=== PATIENT | female | born 1985 | race Caucasian/White ===

== ENCOUNTER 2020-02-01 19:08 | Emergency (ER) | payer OTHER, SELFPAY ==
[2020-02-01 19:11] VITALS: BP 145/102; PULSE 95; RESP 16; TEMP 36.7; O2SAT 97; BMI 19.4
--- NOTE | 2020-02-01 19:14 | XRR_ITS ---
PROCEDURE INFORMATION: Exam: XR Left Wrist Exam date and time: 02/01/2020 7:34 PM Age: 34 years old Clinical indication: Pain; Swelling; Wrist; Left; Additional info: Injury TECHNIQUE: Imaging protocol: XR Left wrist. Views: 3 or more views. COMPARISON: No relevant prior studies available. FINDINGS: Bones/joints: Normal. Soft tissues: Normal. XR/XR wrist LT min 3V* [id number] IMPRESSION: No acute findings.
--- NOTE | 2020-02-01 19:23 | ED_ITS ---
HPI - Extremity Problem General: Chief complaint: Extremity Injury, Upper Stated complaint: WRIST INJURY Time Seen by Provider: 02/01/20 19:12 Source: patient Mode of arrival: ambulatory Limitations: no limitations History of Present Illness: HPI Narrative: 34-year-old female states she has been having left wrist pain over the last 2 weeks. States she is had some swelling and has pain with any movement or use of the wrist. She denies any known injury. She denies any fevers. Associated symptoms: Deny chest pain, fever(s) or rash Review of Systems Const: Denies: fever(s), chills, body aches or change in appetite Eyes: Denies: blurry vision or eye discomfort ENMT: Denies: throat pain or dental pain Card: Denies: chest pain Resp: Denies: dyspnea GI: Denies: abdominal pain, nausea, vomiting or diarrhea : Denies: dysuria Musc: Reports: extremity pain Skin/Breast: Denies: rash Neuro: Denies: headache(s) Psych: Denies: depression Jay/Lymph: Denies: easy bruising All/Imm: Denies: urticaria Physical Exam Const: COMMON NORMALS: no acute distress, average body habitus and patient oriented x3 HENMT: COMMON NORMALS: normocephalic and atraumatic HEAD & SCALP: normocephalic and atraumatic Eye: COMMON NORMALS: conjunctivae normal CONJUNCTIVA: Yes conjunctivae normal Neck/C-Spine: COMMON NORMALS: supple Resp: COMMON NORMALS: normal respiratory effort Cardio: COMMON NORMALS: regular rate RATE: regular rate Extremity: NARRATIVE EXTREMITY EXAM: swelling alongwith tenderness to left wrist with no warmth or redness Neuro: COMMON NORMALS: patient oriented x3 Psych: COMMON NORMALS: mental status grossly normal, Normal thought process present and cooperative THOUGHT PROCESS: Normal thought process present Skin: COMMON NORMALS: no rashes or lesions noted GENERAL SKIN EXAM: no rashes or lesions noted Course Vital Signs: Vital signs: Vital Signs Temperature 98.1 F 02/01/20 19:11 Pulse Rate 95 02/01/20 19:11 Respiratory Rate 16 02/01/20 19:11 Blood Pressure 145/102 02/01/20 19:11 Pulse Oximetry 97 02/01/20 19:11 MDM - Extremity (Nontraumatic) MDM Narrative: Medical decision making narrative: Patient presents here with a wrist sprain. Patient's x-ray here shows no fracture. She is well-appearing here and is stable for discharge. She is to ice along with rest and will place an Dragan wrap. She is to follow-up with PCP in 3 to 5 days return if worsening. She has no signs of septic joint no warmth to touch. Imaging Data^: X-ray left wrist: Attestation: I personally reviewed and interpreted this imaging study as follows: My impression: No acute abnormality Discharge Plan Discharge Patient Disposition: Home Clinical Impression: Sprain and strain of wrist Condition: Stable Discharge Orders: Discharge Order (Routine); Ordered 02/01/20 Ordered By: Gabriel Mast Referrals: García Genao MD [Family Provider] - Discharge Diet: Advance as tolerated Discharge Activity: Resume usual activity Patient Instructions: Wrist Sprain (ED) Coding Level of Care Code ED Marriage And Family Therapist for Walig Fwd Exam Comprehensive
[2020-02-01] MEDS: naproxen 500 mg Tablet PO (19:34)
[2020-02-01 20:06] VITALS: BP 143/103; PULSE 89; RESP 16; TEMP 36.7; O2SAT 98
== END 2020-02-01 20:06 | disposition home or self-care (01) ==
LOC: ER 20:27
PROVIDERS: Emergency Provider Emergency Medicine; PCP Family Medicine
DX: S63.502A Unspecified sprain of left wrist, initial encounter (principal); S66.912A Strain of unspecified muscle, fascia and tendon at wrist and hand level, left hand, initial encounter; X58.XXXA Exposure to other specified factors, initial encounter
CPT/HCPCS: 12345; 73110; 99281; 99283

== ENCOUNTER 2021-02-26 20:09 | Emergency (ER) | payer OTHER, SELFPAY ==
[2021-02-26 20:23] VITALS: BP 152/92; PULSE 82; RESP 16; TEMP 36.7; O2SAT 96
[2021-02-26 22:19] LABS: HCG Qualitative Urine. Negative (Negative)
[2021-02-26 22:35] LABS: Add Urine Culture? Yes; Add Urine Microscopic? YES; Bacteria Urine 1+ /hpf; Bilirubin Urine 2+ (Negative); Blood Urine 2+ (Negative); Glucose Urine UA Norm (Normal); Ketones Urine Negative (Negative); Leukocyte Esterase Urine 2+ (Negative); Mucus Urine TRACE /hpf; Nitrate Urine Positive (Negative); Protein Urine 3+ (Negative); RBC Urine 0-4 /hpf (0-2); Squamous Epithelial Cell Urine 0-4 /hpf (0-5); Urine Appearance Clear (CLEAR); Urine Color Orange (Yellow); Urobilinogen Urine 4+ mg/dL (Negative); WBC Urine 40-55 /hpf (0-5); pH Urine 6.5 (5-7)
--- NOTE | 2021-02-26 23:30 | ED_ITS ---
HPI - Abdominal Pain General: Chief Complaint: Abdominal Pain Stated Complaint: Bladder Infection Time Seen by Provider: 02/26/21 22:10 Source: patient Mode of arrival: ambulatory Limitations: no limitations History of Present Illness: HPI narrative: 35-year-old female states she has been having lower abdominal pain along with dysuria last 3 days. She states that her pain is worsens greatly as she is emptying her bladder and it feels like knives. States her urinary tract infections in the past and this is the same. Denies any vaginal discharge. She has had an appendectomy. Denies any vomiting or diarrhea. Denies any flank pain. Associated Symptoms: Reports dysuria; Denies chills and fever(s) Review of Systems Const: Denies: fever(s), chills, body aches or change in appetite Eyes: Denies: blurry vision or eye discomfort ENMT: Denies: throat pain or dental pain Card: Denies: chest pain Resp: Denies: dyspnea GI: Reports: abdominal pain : Reports: dysuria Musc: Denies: neck pain or back pain Skin/Breast: Denies: rash Neuro: Denies: headache(s) Psych: Denies: depression Jay/Lymph: Denies: easy bruising All/Imm: Denies: urticaria Physical Exam Const: COMMON NORMALS: no acute distress, patient oriented x3 and healthy appearing HENMT: COMMON NORMALS: normocephalic and atraumatic HEAD & SCALP: normocephalic and atraumatic Eye: COMMON NORMALS: Equal, round and reactive pupils present and EOMs intact bilaterally PUPIL: Yes Equal, round and reactive pupils present Neck/C-Spine: COMMON NORMALS: full ROM and supple Chest: COMMONS NORMALS: normal inspection of the chest and normal palpation of entire chest wall Resp: COMMON NORMALS: normal respiratory effort, No retractions, No use of accessory muscles and clear to auscultation bilaterally AUSCULTATION: clear to auscultation bilaterally Cardio: COMMON NORMALS: regular rate, regular rhythm and No murmurs present (Cardio) RATE: regular rate RHYTHM: regular rhythm GI: COMMON NORMALS: Normal to inspection, nondistended, normoactive bowel sounds present, Soft to palpation, non-tender and no masses PALPATION: Yes Soft to palpation Extremity: COMMON NORMALS: normal to inspection and full ROM Neuro: COMMON NORMALS: patient oriented x3, moves all extremities and no focal motor deficits Psych: COMMON NORMALS: mental status grossly normal, Normal thought process present and cooperative THOUGHT PROCESS: Normal thought process present Skin: COMMON NORMALS: no rashes or lesions noted and no wounds GENERAL SKIN EXAM: no rashes or lesions noted Course Vital Signs: Vital signs: Vital Signs Temperature 98.0 F 02/26/21 20:23 Pulse Rate 82 02/26/21 20:23 Respiratory Rate 16 02/26/21 20:23 Blood Pressure 152/92 02/26/21 20:23 Pulse Oximetry 96 02/26/21 20:23 MDM - Abdominal Pain MDM Narrative: Medical decision making narrative: Patient presents here with acute cystitis abdominal exam is benign with no signs of acute surgical abdomen. Patient given a dose of Rocephin here and will prescribe Keflex for home. She has no vaginal discharge or any signs of PID. She is stable for discharge she is to follow-up with PCP and return if worsening. Lab Data: Labs: Lab Results 02/26/21 02/26/21 21:50 21:50 HCG, Qual Negative (Negative) Urine Color [place] (Yellow) Urine Appearance Clear (CLEAR) Urine pH 6.5 (5-7) Ur Specific Gravit y 1.010 (1.005-1.030) Urine Protein 3+ H (Negative) Urine Glucose (UA) Norm (Normal) Urine Ketones Negative (Negative) Urine Blood 2+ H (Negative) Urine Nitrate Positive H (Negative) Urine Bilirubin 2+ H (Negative) Urine Urobilinogen 4+ mg/dL H mg/dL (Negative) Ur Leukocyte Dara ase 2+ H (Negative) Urine RBC 0-4 /hpf H /hpf (0-2) Urine WBC 40-55 /hpf H /hpf (0-5) Ur Squamous Epith Cells 0-4 /hpf H /hpf (0-5) Amorphous Sediment Not Reportable Urine Bacteria 1+ /hpf H /hpf (NONE) Urine Mucus Trace /hpf /hpf Discharge Plan Discharge Patient Disposition: Home Clinical Impression: Acute cystitis Qualifiers: Hematuria presence: without hematuria Qualified Code(s): N30.00 - Acute cystitis without hematuria Condition: Stable Prescriptions: New cephalexin 500 mg capsule 500 mg PO TID 7 Days Qty: 21 RF: 0 Naprosyn 500 mg tablet 500 mg PO BID PRN (Reason: pain) Qty: 20 RF: 0 Discharge Orders: Discharge ED (Routine); Ordered 02/26/21 Ordered By: Gabriel Mast Discharge Diet: Advance as tolerated Discharge Activity: Resume usual activity Patient Instructions: Urinary Tract Infection in Women (DC) Coding Level of Care Code ED Electric Power Line Examiner for Matilde Cerrato
[2021-02-26 23:36] VITALS: BP 169/121; PULSE 88; RESP 18; O2SAT 98
[2021-02-26] MEDS: HYDROcodone-acetaminophen 7.5-325 mg Tablet 1 TAB PO (23:37)
[2021-02-26] MEDS: cefTRIAXone 1,000 MG in lidocaine 1% 2.1 ML 2.1 MG IM (23:38)
[2021-02-26] MEDS: fluconazole 100 mg Tablet 150 MG PO (23:41)
[2021-02-26 23:43] VITALS: BP 155/104; PULSE 99; RESP 18; O2SAT 97
== END 2021-02-26 23:47 | disposition home or self-care (01) ==
PROVIDERS: Emergency Provider Emergency Medicine
DX: N30.00 Acute cystitis without hematuria (principal)
CPT/HCPCS: 81001; 81025; 87077; 87086; 87186; 96372; 99283; J0696

== ENCOUNTER → 2021-04-03 09:09 | Outpatient (BNVA) | payer OTHER, SELFPAY | PROVIDERS: PCP Nurse Practitioner Family; Visit Provider Nurse Practitioner Family | DX: R05.9 Cough, unspecified (principal); J02.9 Acute pharyngitis, unspecified | CPT/HCPCS: 87070; 87400; 87880 ==

== ENCOUNTER → 2021-07-05 15:44 | Outpatient (BNVA) | payer OTHER, SELFPAY | PROVIDERS: PCP Nurse Practitioner Family; Visit Provider Nurse Practitioner | DX: R73.9 Hyperglycemia, unspecified (principal); N92.6 Irregular menstruation, unspecified | CPT/HCPCS: 80053; 80061; 81000; 83036; 84443; 85025 ==

== ENCOUNTER 2022-01-16 09:59 | Emergency (ER) | payer OTHER, SELFPAY ==
[2022-01-16] VITALS (9 sets, daily range): BP systolic 112–133; BP diastolic 76–90; PULSE 75–107; RESP 12–33; TEMP 36.6; O2SAT 100; BMI 22.4
--- NOTE | 2022-01-16 10:21 | ED_ITS ---
HPI - Syncope General: Chief Complaint: Syncope Stated Complaint: Extreme nausea, passing out spells Time Seen by Provider: 01/16/22 10:00 Source: patient Mode of arrival: ambulatory History of Present Illness: 36-year-old female presents to the emergency room with a complaint of syncopal episode. On arrival in the room her is on speaker phone on a conference call. Will return at a later time once he has completed his meeting. Return to the patient's room she is awake alert and oriented states she had a couple episodes where she nearly passed out she went into work after being home for several days because of a persistent nausea and vomiting. She got lightheaded and dizzy she went to lay down when she went to sit back up she felt like she nearly passed out and then had similar episodes again ultimately her h usband was called and brought her in here. She denies any fever sweats chills with the GI symptoms she had previously there is no hematochezia melena hematemesis or coffee-ground emesis. MD complaint: felt faint and almost passed out Onset (ago): hour(s) Prodromal symptoms: lightheaded Context: recent illness and other (Change in posture) Injuries sustained associated with event: none Associated symptoms: Reports lightheadedness and nausea; Deny abdominal pain, chest pain, fever(s), headache(s), short of breath, vertigo or weakness Treatments prior to arrival: none Review of Systems Const: Denies: fever(s), chills, fatigue or malaise ENMT: Denies: throat pain, ear or mastoid pain, nasal discharge or nasal congestion Card: Reports: lightheadedness; Denies: chest pain Resp: Denies: dyspnea, productive cough or non-productive cough GI: Reports: nausea; Denies: abdominal pain : Denies: flank pain, difficulty voiding, dysuria, urinary frequency or urinary urgency Musc: Denies: neck pain or back pain Skin/Breast: Denies: rash or pruritus Neuro: Denies: headache(s) or vertigo PFSH ED PFSH: Medical History Migraine headache Surgical History History of appendectomy 2010 History of section 2008 History of hernia repair right 1996 Family History Grandfather Cancer Diabetes Hypertension Stroke Grandmother Cancer Diabetes Hypertension Mother Diabetes Hypertension Father Hypertension Sister Hypertension Brother Hypertension Father Stroke Other Dementia Denies family history of Anesthesia complication Bleeding disorder Social History Smoking and tobacco status: never smoked Second hand smoke exposure: No Smoking risk assessment/counseling performed?: No Alcohol intake: never Desire information about alcohol rehabilitation?: No Counseling given: No Desire information about substance/drug rehabilitation?: No Counseling given: No Adopted: No Caregiver/support person: Yes Lives independently: Yes Household members: spouse and children Housing: House Marital status: Number of children: 3 service: No Current occupational status: employed Current occupation: [employer] Pets and animals: Yes Pets & animals: farm animals Current gender identity: Female Female Reproductive History: Date of last menstrual period: 06/07/21 Physical Exam Const: GENERAL APPEARANCE: cooperative and comfortable ORIENTATION/CONSCIOUSNESS: Yes awake, Yes oriented to person, Yes oriented to place and Yes oriented to time HENMT: COMMON NORMALS: normocephalic, atraumatic and hearing grossly normal bilaterally HEAD & SCALP: normocephalic and atraumatic Resp: COMMON NORMALS: normal respiratory effort, No retractions, No use of accessory muscles and clear to auscultation bilaterally AUSCULTATION: clear to auscultation bilaterally Cardio: COMMON NORMALS: regular rate, regular rhythm and No murmurs present (Cardio) RATE: regular rate RHYTHM: regular rhythm GI: COMMON NORMALS: Soft to palpation and No hepatosplenomegaly present AUSCULTATION: Yes normoactive bowel sounds PALPATION: Yes Soft to palpation, No Tenderness to palpation present (GI), No Guarding due to palpation present (GI) and Yes No hepatosplenomegaly present Extremity: COMMON NORMALS: normal to inspection, capillary refill normal, no clubbing, cyanosis or edema, no calf tenderness and no pedal edema Neuro: SENSORIUM/ORIENTATION: Yes oriented to person, Yes oriented to place and Yes oriented to time Skin: COMMON NORMALS: no rashes or lesions noted GENERAL SKIN EXAM: no rashes or lesions noted Course Vital Signs: Vital signs: Vital Signs Temperature 97.8 F 01/16/22 10:06 Pulse Rate 94 01/16/22 13:18 Respiratory Rate 20 H 01/16/22 13:18 Blood Pressure 119/86 01/16/22 13:18 Pulse Oximetry 100 01/16/22 13:18 Oxygen Delivery Me thod 01/16/22 10:06 MDM - Syncope Medical Decision Making Ketones in urine otherwise labs unremarkable. Patient responded well to fluids feeling much better discharged home antiemetics as needed clear liquid diet advance as tolerated recommend she take the next 1-2 more days or cough. Medical Records I reviewed the patient's medical records. Lab Data I reviewed the patient's lab results. : 01/16/22 10:26 01/16/22 10:26 Laboratory Results WBC 8.8 10^3/uL (4.0-10.0) 01/16/22 10:26 RBC 4.59 10^6/uL (4.1-5.3) 01/16/22 10:26 Hgb 14.1 g/dL (11.5-15.3) 01/16/22 10:26 Hct 42.0 % (37.0-47.0) 01/16/22 10:26 MCV 91.5 fl (81-99) 01/16/22 10:26 MCH 30.7 pg (28.0-34.0) 01/16/22 10:26 MCHC 33.6 g/dL (30.0-36.0) 01/16/22 10:26 RDW 12.4 % (12.1-15.1) 01/16/22 10:26 Plt Count 284 10^3/cmm (130-400) 01/16/22 10:26 MPV 9.5 fL (7.4-10.4) 01/16/22 10:26 Neut % (Auto) 76.9 % 01/16/22 10:26 Lymph % (Auto) 14.9 % 01/16/22 10:26 Maries % (Auto) 7.1 % 01/16/22 10:26 Eos % (Auto) 0.5 % 01/16/22 10:26 Baso % (Auto) 0.3 % 01/16/22 10:26 Neut # (Auto) 6.74 10^3/uL (1.8-7.7) 01/16/22 10:26 Lymph # (Auto) 1.3 10^3/uL (0.8-4.8) 01/16/22 10:26 Maries # (Auto) 0.6 10^3/uL (0.2-0.9) 01/16/22 10:26 Eos # (Auto) 0.0 10^3/uL (0.0-0.8) 01/16/22 10:26 Baso # (Auto) 0.0 10^3/uL (0.0-0.1) 01/16/22 10:26 Nucleated RBC % (auto) 0 % 01/16/22 10:26 Nucleated RBCs # 0.0 /100WBC 01/16/22 10:26 Sodium 138 mmol/L (136-145) 01/16/22 10:26 Potassium 3.9 mmol/L (3.5-5.1) 01/16/22 10:26 Chloride 102 mmol/L (98-107) 01/16/22 10:26 Carbon Dioxide 25 mmol/L (22-29) 01/16/22 10:26 Anion Gap 14.9 (5-19) 01/16/22 10:26 BUN 11 mg/dL (6-20) 01/16/22 10:26 Creatinine 0.5 mg/dL (0.5-0.9) 01/16/22 10:26 GFR Calculation 139.6 mL/min (90-130) H 01/16/22 10:26 Glucose 83 mg/dL (65-115) 01/16/22 10:26 Calculated Osmolality 285 mOsm/kg (285-295) 01/16/22 10:26 Calcium 9.6 mg/dL (8.5-10.5) 01/16/22 10:26 Total Bilirubin 0.3 mg/dL (0.15-1.2) 01/16/22 10:26 AST 16 U/L (0-32) 01/16/22 10:26 ALT 14 U/L (0-33) 01/16/22 10:26 Alkaline Phosphatase 53 U/L (35-105) 01/16/22 10:26 Total Protein 7.5 g/dL (6.6-8.7) 01/16/22 10:26 Albumin 4.5 g/dL (3.5-5.2) 01/16/22 10:26 Globulin 3.0 g/dL (1.3-4.6) 01/16/22 10:26 HCG, Qual Negative (Negative) 01/16/22 10:35 Urine Color Yellow (Yellow) 01/16/22 11:22 Urine Appearance Clear (CLEAR) 01/16/22 11:22 Urine pH 6 (5-7) 01/16/22 11:22 Ur Specific [place] 1.010 (1.005-1.030) 01/16/22 11:22 Urine Protein Neg (Negative) 01/16/22 11:22 Urine Glucose (UA) Norm (Normal) 01/16/22 11:22 Urine Ketones 2+ (Negative) H 01/16/22 11:22 Urine Blood Neg (Negative) 01/16/22 11:22 Urine Nitrate Negative (Negative) 01/16/22 11:22 Urine Bilirubin Neg (Negative) 01/16/22 11:22 Urine Urobilinogen Norm mg/dL (Negative) 01/16/22 11:22 Ur Leukocyte Esterase Negative (Negative) 01/16/22 11:22 Discharge Plan Discharge Patient Disposition: Home Clinical Impression: Syncope due to orthostatic hypotension Condition: Stable Prescriptions: New ondansetron HCl 4 mg tablet 4 mg PO Q6H PRN (Reason: nausea and vomiting) Qty: 20 0RF No Action cyclobenzaprine 10 mg tablet 10 mg PO DAILY PRN (Reason: Migraine Headache) promethazine 25 mg tablet 25 mg PO DAILY PRN (Reason: Migraine Headache) rizatriptan 10 mg tablet 10 mg PO DAILY PRN (Reason: Migraine Headache) Imodium 2 mg Capsule 2 mg PO .ONCE Multivitamins 28 mg iron- 800 mcg Tablet 1 tab PO DAILY Discharge Orders: Discharge ED (Routine); Ordered 01/16/22 Ordered By: Joe Mcfarlane Referrals: Kimberly Pierce FNP-C [Primary Care Provider] - Discharge Diet: Advance as tolerated Discharge Activity: Increase activity as tolerated Patient Instructions: Opioid Safety Coding Level of Care Code ED Truck Cleaner for Chg Fwd Exam Detailed
--- NOTE | 2022-01-16 10:22 | ECG_ITS ---
[facility] Test Date: 2022-01-16 Pat Name: Maren Toro Department: Room: Gender: Female Deck Hand: : 1985 Requested By: Joe Chairez Order Number: [id number] Annamaria MD: Penelope Arredondo M.D. Measurements Intervals [place] Rate: 91 P: 59 NH: 112 QRS: 52 QRSD: 76 T: 23 QT: 337 QTc: 416 Interpretive Statements SINUS RHYTHM WITH SHORT NH INTERVAL NONSPECIFIC T-WAVE ABNORMALITY No previous ECG available for comparison Electronically Signed On 01-16-2022 16:20:29 CDT by Penelope Arredondo M.D. [email or web address]
[2022-01-16 10:37] LABS: Basophils % 0.3 %; Eosinophils % 0.5 %; Hemoglobin 14.1 g/dL (11.5-15.3); Lymphocytes # 1.3 10^3/uL (0.8-4.8); Lymphocytes % 14.9 %; Mean Corpuscular HGB Conc 33.6 g/dL (30.0-36.0); Mean Corpuscular Hemoglobin 30.7 pg (28.0-34.0); Mean Corpuscular Volume 91.5 fl (81-99); Mean Platelet Volume 9.5 fL (7.4-10.4); Monocytes # 0.6 10^3/uL (0.2-0.9); Monocytes % 7.1 %; Neutrophils # 6.74 10^3/uL (1.8-7.7); Neutrophils % 76.9 %; Nucleated Red Blood Cells % 0 %; Platelet Count 284 10^3/cmm (130-400); Red Blood Count 4.59 10^6/uL (4.1-5.3); Red Cell Distribution Width 12.4 % (12.1-15.1); White Blood Count 8.8 10^3/uL (4.0-10.0)
[2022-01-16] MEDS: ondansetron 2 mg/ML SDV 2 mL 4 MG IVP (10:39)
[2022-01-16] MEDS: sodium chloride 0.9% 1,000 ML 999 ML IV ×2 (10:39→12:03)
--- NOTE | 2022-01-16 10:43 | PC.NURSE ---
pt reports diarrhea since 01/12, denies blood in stool. reports nausea, no vomiting. subjective fevers. reports dizziness and lightheadedness with position changes with that feeling lingering after she lays back down. denies chest pain or dyspnea. reports generalized weakness. orthostatic vs completed, HR noted to elevate with position changes accompanied with feelings of dizziness and lightheadedness. lung sounds clear bilat, bowel sounds present, abdomen soft and nontender to palpation.
[2022-01-16 10:57] LABS: Alanine Aminotransferase 14 U/L (0-33); Albumin Level 4.5 g/dL (3.5-5.2); Alkaline Phosphatase 53 U/L (35-105); Anion Gap 14.9 (5-19); Aspartate Amino Transferase 16 U/L (0-32); Blood Urea Nitrogen 11 mg/dL (6-20); Calcium 9.6 mg/dL (8.5-10.5); Carbon Dioxide 25 mmol/L (22-29); Chloride 102 mmol/L (98-107); Glomerular Filtration Rate 139.6 mL/min (90-130); Glucose 83 mg/dL (65-115); Osmolality Calculated 285 mOsm/kg (285-295); Potassium 3.9 mmol/L (3.5-5.1); Sodium 138 mmol/L (136-145); Total Bilirubin 0.3 mg/dL (0.15-1.2); Total Protein 7.5 g/dL (6.6-8.7)
[2022-01-16 10:59] LABS: HCG, Serum Qual Negative (Negative)
[2022-01-16 11:26] LABS: Add Urine Microscopic? NO; Charge for UA Resulting for Rev
--- NOTE | 2022-01-16 11:26 | PC.NURSE ---
pt ambulatory to and from restroom with slow and steady gait. reconnected to VS monitor
[2022-01-16 11:36] LABS: Bilirubin Urine Neg (Negative); Blood Urine Neg (Negative); Glucose Urine UA Norm (Normal); Ketones Urine 2+ (Negative); Leukocyte Esterase Urine Negative (Negative); Nitrate Urine Negative (Negative); Protein Urine Neg (Negative); Urine Appearance Clear (CLEAR); Urine Color Yellow (Yellow); Urobilinogen Urine Norm (Negative); pH Urine 6 (5-7)
== END 2022-01-16 13:19 | disposition home or self-care (01) ==
PROVIDERS: Emergency Provider Family Medicine; PCP Nurse Practitioner Family
DX: I95.1 Orthostatic hypotension (principal)
CPT/HCPCS: 80053; 81003; 84703; 85025; 93005; 96361; 96374; 99284; J2405; J7030

== ENCOUNTER → 2022-02-03 10:05 | Outpatient (BNVA) | payer OTHER, SELFPAY | PROVIDERS: PCP Family Medicine; Visit Provider Registered Nurse Neonatal Intensive Care | DX: N39.0 Urinary tract infection, site not specified (principal) | CPT/HCPCS: 81000 ==

== ENCOUNTER → 2022-02-05 14:06 | Outpatient (BNVA) | payer OTHER, SELFPAY | PROVIDERS: PCP Family Medicine; Visit Provider Nurse Practitioner Family | DX: R39.9 Unspecified symptoms and signs involving the genitourinary system (principal); N39.0 Urinary tract infection, site not specified | CPT/HCPCS: 81000 ==

== ENCOUNTER 2022-03-01 12:02 | Emergency (ER) | payer OTHER, SELFPAY ==
[2022-03-01 12:18] VITALS: BP 137/88; PULSE 101; RESP 18; TEMP 36.6; O2SAT 98; BMI 19.1
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
[2022-03-01] MEDS: iohexol 350 mg/mL 100 mL Btl IV (13:40)
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
[2022-03-01 14:41] VITALS: BP 138/90; PULSE 95; RESP 15; TEMP 36.6; O2SAT 98
== END 2022-03-01 14:43 | disposition home or self-care (01) ==
PROVIDERS: Emergency Provider Physician Assistant; PCP Family Medicine
DX: S13.4XXA Sprain of ligaments of cervical spine, initial encounter (principal); R10.30 Lower abdominal pain, unspecified; V89.2XXA Person injured in unspecified motor-vehicle accident, traffic, initial encounter
CPT/HCPCS: 72040; 72072; 74177; 99285; Q9967

== ENCOUNTER 2023-05-16 07:30 | Outpatient (CLI) | payer OTHER, SELFPAY ==
--- NOTE | 2023-05-16 08:00 | MR_ITS ---
WS: [id number] MRI HEAD WITHOUT CONTRAST TECHNIQUE: Sagittal T1, T2 axial, T2 axial FLAIR, axial and coronal T1 images, axial susceptibility w eighted imaging, axial diffusion weighted images, and coronal T2 images were obtained. CLINICAL INFORMATION: G43.711 - Chronic migraine without aura, intractable, wit... COMPARISON: None. FINDINGS: No evidence of restricted diffusion to suggest acute ischemia. Ventricular system and basal cisterns are patent. Normal dhaliwal-white differentiation. No suspicious intracranial signal abnormalities. Silke l posterior fossa. Normal vascular flow voids at the skull base. No extra-axial fluid collections. No evidence of mass or mass effect. Paranasal sinuses and mastoid air cells are well aerated. IMPRESSION: 1. No evidence of restricted diffusion to suggest acute ischemia. 2. Normal dhaliwal-white differentiation. No suspicious intracranial signal abnormalities. 3. No hemosiderin on susceptibility-weighted images. 4. No other suspicious findings.
== END 2023-05-16 07:31 | disposition home or self-care (01) ==
LOC: RAD 07:30
PROVIDERS: PCP Family Medicine; Visit Provider Specialist
DX: G43.711 Chronic migraine without aura, intractable, with status migrainosus (principal)
CPT/HCPCS: 70551

== ENCOUNTER → 2023-07-15 09:40 | Outpatient (BNVA) | payer OTHER, SELFPAY | PROVIDERS: PCP Family Medicine; Visit Provider Nurse Practitioner Family | DX: R39.9 Unspecified symptoms and signs involving the genitourinary system (principal) | CPT/HCPCS: 81000; 87077; 87086; 87184 ==

== ENCOUNTER → 2023-08-21 13:54 | Outpatient (BNVA) | payer OTHER, SELFPAY | PROVIDERS: PCP Family Medicine; Visit Provider Nurse Practitioner Family | DX: R39.9 Unspecified symptoms and signs involving the genitourinary system (principal) | CPT/HCPCS: 81003; 87086 ==

== ENCOUNTER → 2023-09-03 08:23 | Outpatient (BNVA) | payer OTHER, SELFPAY | PROVIDERS: PCP Family Medicine; Visit Provider Nurse Practitioner Family | DX: N39.0 Urinary tract infection, site not specified (principal) | CPT/HCPCS: 81000 ==